=== PATIENT | female | born 1965 | race Caucasian/White ===

== ENCOUNTER 2017-10-16 05:50 | Day surgery (SDC) | payer BC ==
[2017-10-16] MEDS ORDERED: MIDAZOLAM 1 MG/ML 2 ML INJ ×2 (07:50)
[2017-10-16] MEDS ORDERED: FENTAnyl 50 MCG/ML VIAL (07:51)
== END 2017-10-16 10:43 | disposition home or self-care (01) ==
LOC: GIL 05:50
DX: K29.60 Other gastritis without bleeding (principal); K44.9 Diaphragmatic hernia without obstruction or gangrene; K21.9 Gastro-esophageal reflux disease without esophagitis
CPT/HCPCS: 43239; 87081